=== PATIENT | female | born 1960 | race Two or more races ===

== ENCOUNTER 2024-08-16 14:42 | Outpatient (CLI) | payer OTHER | END 2024-08-16 14:56 | disposition home or self-care (01) | LOC: SONOGRAMA 14:42 | PROVIDERS: ATTEND Physical Medicine & Rehabilitation Hospice and Palliative Medicine | DX: M25.511 Pain in right shoulder (principal); M25.611 Stiffness of right shoulder, not elsewhere classified; M75.101 Unspecified rotator cuff tear or rupture of right shoulder, not specified as traumatic ==